=== PATIENT | female | born 1960 | race Caucasian/White ===

== ENCOUNTER 2017-11-19 06:52 | Day surgery (SDC) | payer OTHER ==
[2017-11-19] MEDS ORDERED: PROPOFOL 60 ML (08:47)
[2017-11-19] MEDS ORDERED: LIDOCAINE 2% (SDV) 5 ML INJ (08:48)
== END 2017-11-19 10:09 | disposition home or self-care (01) ==
LOC: GIL 06:52
DX: K57.90 Diverticulosis of intestine, part unspecified, without perforation or abscess without bleeding (principal); D12.4 Benign neoplasm of descending colon; K29.70 Gastritis, unspecified, without bleeding; M06.9 Rheumatoid arthritis, unspecified
CPT/HCPCS: 43239; 88305; 88312; 88313